=== PATIENT | female | born 1950 | race Caucasian/White ===

== ENCOUNTER 2018-04-02 09:20 | Day surgery (SDC) | payer MEDICARE, BC ==
[2018-04-01 09:37] LABS: HEMATOCRIT 38.1 % (36.0-48.0); HEMOGLOBIN 12.3 g/dL (12-16); MCH 31.5 pg (26.0-34.0); MCHC 32.3 g/dL (31.0-37.0); MCV 97.4 fL (80.0-100.0); MEAN PLATELET VOLUME 8.9 fL (7.4-10.4); RBC 3.91 10x6/uL (4.00-5.40); RDW 12.7 % (11.5-14.5); WBC 6.4 10x3/uL (4.8-10.8)
[~2018-04-02] VITALS: Ht 157.5 cm; Wt 61.7 kg
--- NOTE | ~2018-04-02 | OP ---
PATIENT NAME: POLINA PEARSON MEDICAL RECORD: [id number] :54 LOCATION:D.OPS ADMISSION DATE: SURGEON: MARCELLE FISHER MD DATE OF OPERATION: 04/02/2018 PRINCIPAL DIAGNOSES: Multiple colon polyps including 4 serrated adenomas, on in the transverse colon at 55 cm, one in the proximal ascending colon, one in the hepatic flexure, another one in the transverse colon at 60 cm. The patient also had a tubular adenoma. POSTOPERATIVE DIAGNOSES: Multiple colon polyps including 4 serrated adenomas, on in the transverse colon at 55 cm, one in the proximal ascending colon, one in the hepatic flexure, another one in the transverse colon at 60 cm. The patient also had a tubular adenoma. No apparent regrowth of the polyps. There was a new polyp on a fold at 55 cm. It was best seen with narrow band imaging. Inadequate prep. PROCEDURES: 1. Total colonoscopy to cecum. 2. Hot biopsy forceps polypectomy times 1. SURGEON: Marcelle Fisher MD LICENSED THERAPIST: None. BLOOD LOSS: Minimal. ANESTHESIA: General. COMPLICATIONS: None. The risks, possible complications and alternatives to procedure were explained to the patient. She elects to proceed. OPERATIVE COURSE: The patient was conveyed to the operating room electively on 04/02/2018. General anesthesia was induced by the anesthesia staff. The patient was placed in the Schrader position. A digital rectal examination was performed. A colonoscope was inserted through the anus. It was easily advanced to the cecum. Upon withdrawal, I irrigated and aspirated extensively. Pullback was greater than an 18-minute pullback. I dragged the folds. I utilized normal imaging as well as narrow band imaging. A hot biopsy forceps polypectomy was performed. A retroflexed view was obtained in the rectum. Unretroflexed the scope and removed it under direct vision. I went out and spoke to the patient's . He explains his great displeasure at the amount of time they had to wait for this procedure to be performed. Additionally, there was a lack of communication with him and his regarding the lengthy wait. He states that he is never going to come back to this hospital again. Due to lack of regrowth of the serrated adenomas, I really think we can wait 3 years before the patient's next endoscopy. He states that he will be seeking the use of a different endoscopist. I have recommended that he go back and see Dr. Irizarry for his endoscopy. OPERATIVE REPORT [id number] [place] I will try to make an appointment for them to see me in my office in 2-3 weeks if they agree to see me there. TRANSINT:[id number] Voice Confirmation ID: [id number] DOCUMENT ID: [id number] MARCELLE FISHER MD at 1951 CC: LETICIA SIMPSON and VICKIE IRIZARRY [id number] DICTATION DATE: 04/02/18 184 [facility] DUSTER HELPER: 04/03/18 [id number] [facility] 04/02/18 [facility] [address] [place] [address]
[~2018-04-02 09:20] MED LIST: ANASTROZOLE1 MG PO; CRESTOR40 MG PO; EFFEXOR XR150 MG PO; NEURONTIN 300300 MG PO
[2018-04-02] MEDS ORDERED: TYLENOL PM1 TAB PO (10:35)
[2018-04-02 10:41] VITALS: BP 135/99; Ht 157.5 cm; Wt 61.7 kg
== END 2018-04-02 20:25 | disposition home or self-care (01) ==
LOC: D.OPS 09:20 → D.PAN 09:30 → D.OPS 10:00
PROVIDERS: Anesthesiology
DX: K63.5 Polyp of colon (principal); Z86.010 Personal history of colon polyps; Z01.812 Encounter for preprocedural laboratory examination